=== PATIENT | male | born 1940 | race Caucasian/White ===

== ENCOUNTER 2016-11-21 10:58 | Emergency (ER) | payer MEDICARE, BC, OTHER ==
[2016-11-21 11:15] VITALS: BP 129/78
[2016-11-21] MEDS ORDERED: DIPHTH,PERTUSS(ACELL),TET VAC 0.5 ML VIAL IM ONE ×2 (11:15→11:30)
--- OUTSIDE RECORDS SUMMARY | 2016-11-21 12:02 | XMS REPORT | Summary of Care ---
:1940 Author Organization [facility] Address [address] [place] [address]- Care Team Providers Name Role Phone Le Byrd Primary Care Physician Encounter Date(s): 11/04/16 - 11/07/16 [facility] [address] [place] [id number] [facility] Discharge Diagnosis: Syncope Discharge Diagnosis: Bradycardia Discharge Diagnosis: Bacterial pneumonia Discharge Diagnosis: Hyponatremia Discharge Disposition: 01 Discharged to Home or Self Care Attending Physician: Jose A Weldon MD Admitting Physician: Jose A Weldon MD Vital Signs Most recent to oldest [Reference 1 2 3 Range]: Temperature Temporal Artery 36.0 DegC 37.3 DegC 36.9 DegC [36-38 DegC] (11/07/16 11:00 AM) (11/07/16 7:00 AM) (11/07/16 4:00 AM) Peripheral Pulse Rate [60-100 60 bpm 60 bpm bpm] (11/05/16 9:59 AM) (11/05/16 9:58 AM) Heart Rate Monitored [60-100 bpm] 80 bpm 74 bpm 66 bpm (11/07/16 11:00 AM) (11/07/16 7:00 AM) (11/07/16 4:34 AM) Respiratory Rate [12-20 br/min] 16 br/min 18 br/min 18 br/min (11/07/16 11:00 AM) (11/07/16 7:00 AM) (11/07/16 4:34 AM) SpO2 93 % 97 % 98 % (11/07/16 11:00 AM) (11/07/16 7:00 AM) (11/07/16 4:00 AM) SpO2 Location Right hand Right hand Left hand (11/07/16 11:00 AM) (11/07/16 7:00 AM) (11/07/16 4:00 AM) Blood Pressure [90-130/60-90 129/71mmHg 130/72mmHg 139/91gsQy6 mmHg] (11/07/16 11:00 AM) (11/07/16 7:00 AM) *HI* (11/07/16 4:00 AM) Mean Arterial Pressure Monitor 97 mmHg 91 mmHg 92 mmHg Measure (11/04/16 8:05 PM) (11/04/16 5:00 PM) (11/04/16 4:15 PM) Blood Pressure Location Left arm Left arm Left arm (11/07/16 11:00 AM) (11/07/16 7:00 AM) (11/07/16 4:00 AM) Blood Pressure Supine 131/71mmHg [90-130/60-90 mmHg] *HI* (11/05/16 11:00 AM) Systolic Blood Pressure Supine 115 mmHg 148 mmHg5 [90-130 mmHg] (11/07/16 9:28 AM) *HI* (11/06/16 8:40 AM) Diastolic Blood Pressure Supine 76 mmHg 90 mmHg [60-90 mmHg] (11/07/16 9:28 AM) (11/06/16 8:40 AM) Pulse Supine [60-100 bpm] 86 bpm 55 bpm7 (11/07/16 9:28 AM) *LOW* (11/06/16 8:40 AM) Blood Pressure Sitting 132/82mmHg [90-130/60-90 mmHg] *HI* (11/05/16 11:00 AM) Systolic Blood Pressure Sitting 131 mmHg2 158 mmHg3 [90-130 mmHg] *HI* *HI* (11/07/16 9:28 AM) (11/06/16 8:40 AM) Diastolic Blood Pressure Sitting 72 mmHg 76 mmHg [60-90 mmHg] (11/07/16 9:28 AM) (11/06/16 8:40 AM) Pulse Sitting [60-100 bpm] 73 bpm 58 bpm6 (11/07/16 9:28 AM) *LOW* (11/06/16 8:40 AM) Blood Pressure Standing 135/77mmHg [90-130/60-90 mmHg] *HI* (11/05/16 11:00 AM) Systolic Blood Pressure Standing 117 mmHg 133 mmHg4 [90-130 mmHg] (11/07/16 9:28 AM) *HI* (11/06/16 8:40 AM) Diastolic Blood Pressure Standing 60 mmHg 80 mmHg [60-90 mmHg] (11/07/16 9:28 AM) (11/06/16 8:40 AM) Pulse Standing [60-100 bpm] 80 bpm 61 bpm (11/07/16 9:28 AM) (11/06/16 8:40 AM) Peripheral Pulse Rate with 62 bpm 66 bpm Activity (11/05/16 9:59 AM) (11/05/16 9:58 AM) Systolic Blood Pressure with 150 mmHg 150 mmHg Activity (11/05/16 9:59 AM) (11/05/16 9:58 AM) Diastolic Blood Pressure with 72 mmHg 72 mmHg Activity (11/05/16 9:59 AM) (11/05/16 9:58 AM) Most recent to oldest [Reference 1 2 3 Range]: Height/Length Measured 169 cm (11/04/16 6:19 PM) Weight Estimated 110 kg (11/04/16 3:15 PM) Weight Dosing 108.30 kg8 107.90 kg9 110.00 kg (11/05/16 4:17 AM) (11/04/16 7:34 PM) (11/04/16 6:19 PM) Weight Measured 106 kg 108.3 kg 107.9 kg (11/07/16 4:12 AM) (11/05/16 4:17 AM) (11/04/16 6:19 PM) BSA Measured 2.17 m2 (11/04/16 6:19 PM) Body Mass Index Measured 37.11 kg/m2 37.92 kg/m2 37.78 kg/m2 (11/07/16 4:12 AM) (11/05/16 4:17 AM) (11/04/16 6:19 PM) 1Result Comment: Notified Shakira MATIAS2Result Comment: notified nurse [id number] Comment: Reported to FLORENCIO Escoto.4Result Comment: Reported to RN. Tigist5Result Comment: Reported to RN. Tigist6Result Comment: Reported to Tigist, RN.7Result Comment: Reported to FLORENCIO Escoto.8Result Comment: This result was because the dosing weight was either not entered or it is>30 days old. This result is based off: Weight Measured November 05, 2016 04:17:00 GROUNDS MANAGER by Genevieve Shankar CNA9Result Comment: This result was because the dosing weight was either not entered or it is>30 days old. This result is based off: Weight Measured November 04, 2016 18:19:00 GROUNDS MANAGER by Zehra Haywood RN Problem List Condition Effective Dates Status Health Status Informant Cyst of kidney, acquired(Confirmed) Active Adrenal insufficiency(Confirmed) Active Bleeding tendency(Confirmed) Active Blood clot(Confirmed)1 Active CAD - Coronary artery Active disease(Confirmed) Colonic polyp(Confirmed) Active DI - Diabetes insipidus(Confirmed) Active DM - Diabetes mellitus(Confirmed)2 Active Embolism(Confirmed)3 Active FH: Thyroid disease(Confirmed) Active Gouty arthritis(Confirmed) Active Hyperlipidemia(Confirmed) Active Hypothyroidism(Confirmed) Active Obesity(Confirmed) Active ATA - Obstructive sleep Active apnea(Confirmed) Osteopenia(Confirmed) Active Panhypopituitarism(Confirmed) Active 1Right leg and [id number] Allergies, Adverse Reactions, Alerts Substance Reaction Severity Status testosterone Active Medications Actonel 35 mg oral tablet 1 tab(s), Oral, q7day, take in AM, # 13 tab(s), 3 Refill(s), Pharmacy: [facility] Special Instructions: take in AM Start Date: 02/14/14 Stop Date: 11/04/16 Status: CompletedActonel 35 mg oral tablet 1 tab(s), Oral, q7day, take in AM, # 30 tab(s), 5 Refill(s), Pharmacy: [id number] Special Instructions: take in AM Start Date: 01/09/14 Stop Date: 02/14/14 Status: CompletedActonel 35 mg oral tablet 1 tab(s), Oral, q7day, take in AM, # 30 tab(s), 5 Refill(s) Special Instructions: take in AM Start Date: 01/09/14 Stop Date: 01/09/14 Status: Discontinuedamiodarone 200 mg oral tablet 1 tab(s), Oral, Daily, 0 Refill(s), Start Date: 12/18/15 10:45:00 CDT Start Date: 12/18/15 Status: OrderedAricept 10 mg oral tablet 1 tab(s), Oral, HS, # 30 tab(s), 0 Refill(s) Start Date: 01/22/14 Status: Orderedaspirin 81 mg oral tablet 1 tab(s), Oral, Daily, Start Date: 11/04/16 16:30:00 GROUNDS MANAGER Start Date: 11/04/16 Status: Orderedatorvastatin 40 mg oral tablet 1 tab(s), Oral, Daily, Start Date: 11/04/16 16:33:00 GROUNDS MANAGER Start Date: 11/04/16 Status: OrderedATORVASTATIN 40 MG TABLET 0 Refill(s), Supply Start Date: 12/18/15 Stop Date: 11/04/16 Status: Completedcalcium (as carbonate)-vitamin D 500 mg-400 intl units oral tablet, chewable 1 tab(s), Chewed, BID, # 60 tab(s), 0 Refill(s) Start Date: 01/22/14 Status: OrderedCalcium 500+D 1 tab(s), Chewed, BID, Start Date: 11/04/16 16:35:00 GROUNDS MANAGER Start Date: 11/04/16 Stop Date: 11/07/16 Status: Discontinuedcarvedilol 3.125 mg oral tablet 1 tab(s), Oral, BID, 0 Refill(s), Start Date: 12/18/15 10:45:00 CDT Start Date: 12/18/15 Stop Date: 11/07/16 Status: DiscontinuedCeftin 250 mg oral tablet 1 tab(s), Oral, BID, # 8 tab(s), 0 Refill(s), Start Date: 11/07/16 11:55:00 GROUNDS MANAGER Start Date: 11/07/16 Stop Date: 11/11/16 Status: OrderedCeleBREX 200 mg oral capsule 1 cap(s), Oral, Daily, 0 Refill(s) Start Date: 01/22/14 Stop Date: 02/14/14 Status: DiscontinuedCeleBREX 200 mg oral capsule 1 cap(s), Oral, Daily, # 90 cap(s), 3 Refill(s), Pharmacy: [facility] Start Date: 02/14/14 Stop Date: 11/07/16 Status: Discontinuedclindamycin 300 mg oral capsule 1 cap(s), Oral, BID, # 20 cap(s), 0 Refill(s), Pharmacy: [id number] Start Date: 02/14/14 Stop Date: 11/04/16 Status: Completedclopidogrel 75 mg oral tablet 0 Refill(s), Start Date: 12/18/15 10:45:00 CDT Start Date: 12/18/15 Stop Date: 11/04/16 Status: CompletedCoumadin 3 mg oral tablet 1 tab(s), Oral, Daily, # 30 tab(s), 0 Refill(s) Start Date: 01/22/14 Stop Date: 11/04/16 Status: CompletedDDAVP Nasal 10 mcg/inh nasal spray 1 SPRAY, Nasal, BID, 0 Refill(s), Start Date: 01/22/14 13:14:00 CDT Start Date: 01/22/14 Stop Date: 11/07/16 Status: DiscontinuedDDAVP Nasal 10 mcg/inh nasal spray 1 spray(s), Nasal, Daily, 0 Refill(s), Start Date: 11/07/16 11:51:00 GROUNDS MANAGER Start Date: 11/07/16 Status: Ordereddexamethasone 4 mg/mL injectable solution 4 mg, IV, q6hr, PRN ADRENAL CRISIS, 0 Refill(s), Start Date: 01/22/14 13:14:00 CDT Start Date: 01/22/14 Stop Date: 01/25/14 Status: OrderedFlorastor 250 mg oral capsule 1 cap(s), Oral, BID, # 20 cap(s), 0 Refill(s), Start Date: 11/07/16 11:54:00 GROUNDS MANAGER Start Date: 11/07/16 Stop Date: 11/17/16 Status: Orderedfurosemide 20 mg oral tablet 1 tab(s), Oral, Daily, 0 Refill(s), Start Date: 12/18/15 10:45:00 CDT Start Date: 12/18/15 Status: Orderedhydrocortisone 20 mg oral tablet 1 tab(s), Oral, qPM, 0 Refill(s), Start Date: 11/07/16 11:51:00 GROUNDS MANAGER Start Date: 11/07/16 Status: Orderedhydrocortisone 20 mg oral tablet 2 tab(s), Oral, qAM, 0 Refill(s), Start Date: 11/07/16 11:51:00 GROUNDS MANAGER Start Date: 11/07/16 Status: Orderedhydrocortisone 20 mg oral tablet 1 tab(s), Oral, qAM, Start Date: 11/04/16 16:27:00 GROUNDS MANAGER Start Date: 11/04/16 Stop Date: 11/07/16 Status: Discontinuedhydrocortisone 20 mg oral tablet 0.5 tab(s), Oral, qPM, Start Date: 11/04/16 16:27:00 GROUNDS MANAGER Start Date: 11/04/16 Stop Date: 11/07/16 Status: DiscontinuedICaps Plus oral tablet 1 tab(s), Oral, Daily, # 30 tab(s), 0 Refill(s) Start Date: 01/22/14 Status: Orderedipratropium 42 mcg/inh (0.06%) nasal spray 2 spray(s), Nasal, TID, PRN as needed for cold symptoms, Start Date: 11/04/16 16 :34:00 GROUNDS MANAGER Start Date: 11/04/16 Status: OrderedKlor-Con 10 oral tablet, extended release 1 tab(s), Oral, Daily, Start Date: 11/04/16 16:29:00 GROUNDS MANAGER Start Date: 11/04/16 Status: Orderedlosartan 25 mg oral tablet 1 tab(s), Oral, Daily, 0 Refill(s), Start Date: 12/18/15 10:45:00 CDT Start Date: 12/18/15 Status: OrderedNamenda 10 mg oral tablet 1 tab(s), Oral, BID, # 180 tab(s), 3 Refill(s), Pharmacy: [id number] Start Date: 02/14/14 Status: OrderedNamenda 10 mg oral tablet 1 tab(s), Oral, BID, # 60 tab(s), 0 Refill(s) Start Date: 01/22/14 Stop Date: 02/14/14 Status: Discontinuednitroglycerin 0.4 mg sublingual tablet 1 tab(s), SL, q5min, PRN for chest pain, If chest pain not relieved in 5 minutes after first dose, seek immediate medical attention, Start Date: 16:32:00 GROUNDS MANAGER Special Instructions: If chest pain not relieved in 5 minutes after first dose, seek immediate medical attention Start Date: 11/04/16 Status: Orderedpantoprazole 40 mg oral delayed release tablet 1 tab(s), Oral, Daily, 0 Refill(s), Start Date: 12/18/15 10:45:00 CDT Start Date: 12/18/15 Status: Orderedpotassium chloride 8 mEq oral capsule, extended release 1 cap(s), Oral, Daily, 0 Refill(s) Start Date: 01/22/14 Stop Date: 11/04/16 Status: CompletedSynthroid 125 mcg (0.125 mg) oral tablet 1 tab(s), Oral, Daily, # 30 tab(s), 0 Refill(s) Start Date: 01/22/14 Status: OrderedTessalon Perles 100 mg oral capsule 1 cap(s), Oral, TID, PRN cough, # 21 cap(s), 0 Refill(s), Start Date: 11/07/16 11:54:00 GROUNDS MANAGER Start Date: 11/07/16 Stop Date: 11/14/16 Status: OrderedtraMADol 50 mg oral tablet 1 tab(s), Oral, q12hr, PRN as needed for pain, # 14 tab(s), 0 Refill(s), Start Date: 11/07/16 12:10:00 GROUNDS MANAGER Start Date: 11/07/16 Stop Date: 11/14/16 Status: OrderedTriCor 145 mg oral tablet 1 tab(s), Oral, Daily, # 30 tab(s), 0 Refill(s) Start Date: 01/22/14 Stop Date: 02/14/14 Status: DiscontinuedTriCor 145 mg oral tablet 1 tab(s), Oral, Daily, # 90 tab(s), 3 Refill(s), Pharmacy: [facility] Start Date: 02/14/14 Stop Date: 11/04/16 Status: CompletedVitamin D3 1000 intl units oral tablet 2 tab(s), Oral, Daily, # 30 tab(s), 0 Refill(s) Start Date: 01/22/14 Stop Date: 11/04/16 Status: CompletedVitamin D3 2000 intl units oral tablet 1 tab(s), Oral, Daily, Start Date: 11/04/16 16:35:00 GROUNDS MANAGER Start Date: 11/04/16 Status: Orderedwarfarin 4 mg oral tablet 1 tab(s), Oral, Daily, # 30 tab(s), 0 Refill(s) Start Date: 03/01/14 Stop Date: 03/01/14 Status: DiscontinuedZocor 40 mg oral tablet 1 tab(s), Oral, HS, # 30 tab(s), 0 Refill(s) Start Date: 01/22/14 Stop Date: 02/14/14 Status: DiscontinuedZocor 40 mg oral tablet 1 tab(s), Oral, HS, # 90 tab(s), 3 Refill(s), Pharmacy: [facility] Start Date: 02/14/14 Stop Date: 11/04/16 Status: CompletedZyrTEC 10 mg oral tablet 1 tab(s), Oral, Daily, # 30 tab(s), 0 Refill(s) Start Date: 01/22/14 Status: Ordered Results Patient Viewable Results Most recent to oldest [Reference 1 2 3 Range]: FIO2 21 % 21 % 21 % (11/05/16 11:41 PM) (11/05/16 5:45 AM) (11/05/16 2:04 AM) WBC [4.8-10.8 thou/mm3] 10.8 thou/mm3 (11/05/16 6:18 AM) RBC [4.60-6.00 Mil/mm3] 4.16 Mil/mm3 *LOW* (11/05/16 6:18 AM) Hgb [14.0-18.0 g/dL] 13.1 g/dL *LOW* (11/05/16 6:18 AM) Hct [42.0-52.0 %] 36.9 % *LOW* (11/05/16 6:18 AM) MCV [80.0-94.0 fL] 88.7 fL (11/05/16 6:18 AM) MCH [25.0-38.0 pg/cell] 31.5 pg/cell (11/05/16 6:18 AM) MCHC [31.0-37.0 g/dL] 35.5 g/dL (11/05/16 6:18 AM) RDW [1.0-48.0 fL] 42.4 fL (11/05/16 6:18 AM) Platelet [130-400 thou/mm3] 181 thou/mm3 (11/05/16 6:18 AM) Neutrophils % Auto [50.0-75.0 %] 86.5 % *HI* (11/05/16 6:18 AM) Immature Granulocyte Auto 0.8 % [0.1-2.0 %] (11/05/16 6:18 AM) Lymphocytes % Auto [15.0-41.0 %] 8.3 % *LOW* (11/05/16 6:18 AM) Monocytes % Auto [2.0-10.0 %] 4.3 % (11/05/16 6:18 AM) Eosinophils % Auto [0.0-6.0 %] 0.1 % (11/05/16 6:18 AM) Basophil % Auto [0.0-1.0 %] 0.0 % (11/05/16 6:18 AM) Neutrophils Absolute [1.5-5.9 9.3 thou/mm3 thou/mm3] *HI* (11/05/16 6:18 AM) Immature Gran Absolute [0.01-0.03 0.09 thou/mm3 thou/mm3] *HI* (11/05/16 6:18 AM) Lymphocytes Absolute [1.5-4.0 0.9 thou/mm3 thou/mm3] *LOW* (11/05/16 6:18 AM) Monocytes Absolute [0.0-0.9 0.5 thou/mm3 thou/mm3] (11/05/16 6:18 AM) Eosinophil Absolute [0.0-0.7 0.0 thou/mm3 thou/mm3] (11/05/16 6:18 AM) Basophil Absolute [0.0-0.2 0.0 thou/mm3 thou/mm3] (11/05/16 6:18 AM) Sodium Lvl [135-144 mEq/L] 137 mEq/L 137 mEq/L 125 mEq/L (11/07/16 10:46 AM) (11/06/16 9:08 AM) *LOW* (11/05/16 5:02 PM) Potassium Lvl [3.3-4.8 mEq/L] 3.8 mEq/L 4.6 mEq/L 4.2 mEq/L (11/07/16 10:46 AM) (11/05/16 6:18 AM) (11/04/16 3:41 PM) Chloride Lvl [98-107 mEq/L] 96 mEq/L 86 mEq/L 89 mEq/L *LOW* *LOW* *LOW* (11/07/16 10:46 AM) (11/05/16 6:18 AM) (11/04/16 3:41 PM) Bicarbonate Lvl [22-30 mmol/L] 27 mmol/L 25 mmol/L 27 mmol/L (11/07/16 10:46 AM) (11/05/16 6:18 AM) (11/04/16 3:41 PM) Anion Gap [10.0-20.0] 17.8 18.6 15.2 (11/07/16 10:46 AM) (11/05/16 6:18 AM) (11/04/16 3:41 PM) Glucose Lvl [70-108 mg/dL] 143 mg/dL 106 mg/dL 114 mg/dL *HI* (11/05/16 6:18 AM) *HI* (11/07/16 10:46 AM) (11/04/16 3:41 PM) BUN [7-21 mg/dL] 28 mg/dL 19 mg/dL 23 mg/dL *HI* (11/05/16 6:18 AM) *HI* (11/07/16 10:46 AM) (11/04/16 3:41 PM) Creatinine Lvl [0.50-1.20 mg/dL] 1.31 mg/dL 0.85 mg/dL 1.07 mg/dL *HI* (11/05/16 6:18 AM) (11/04/16 3:41 PM) (11/07/16 10:46 AM) BUN/Creat Ratio 21.4 22.4 21.5 *NA* *NA* *NA* (11/07/16 10:46 AM) (11/05/16 6:18 AM) (11/04/16 3:41 PM) eGFR AA [>=60] >60 >60 >60 (11/07/16 10:46 AM) (11/05/16 6:18 AM) (11/04/16 3:41 PM) eGFR ANA MARIA [>=60] 53 >60 >60 *LOW* (11/05/16 6:18 AM) (11/04/16 3:41 PM) (11/07/16 10:46 AM) Calcium Lvl [8.6-10.2 mg/dL] 9.3 mg/dL 8.3 mg/dL 8.6 mg/dL (11/07/16 10:46 AM) *LOW* (11/04/16 3:41 PM) (11/05/16 6:18 AM) Myoglobin [0-74 ng/mL] 94 ng/mL1 *HI* (11/04/16 3:41 PM) Troponin-I [0.00-0.04 ng/mL] <0.01 ng/mL (11/04/16 3:41 PM) Free T4 [0.89-1.76 ng/dL] 1.51 ng/dL (11/05/16 6:18 AM) Osmolality, [place] Ur [50-1400 524 mOsm/kg H2O mOsm/kg H2O] (11/04/16 5:23 PM) Sodium, [place] Ur 106 mEq/L *NA* (11/04/16 5:23 PM) Estimated Creatinine Clearance 55.87 mL/min 86.11 mL/min 68.40 mL/min (11/07/16 11:12 AM) (11/05/16 7:32 AM) (11/05/16 4:17 AM) InfluA EIA Naso [Negative] Negative5 (11/04/16 4:13 PM) InfluB EIA Naso [Negative] Negative6 (11/04/16 4:13 PM) MRSA Screen by PCR [Negative] Negative (11/04/16 5:30 PM) C. diff toxin [Negative] Negative (11/05/16 10:53 PM) Whole Blood Glucose [70-108 151 mg/dL2 120 mg/dL3 90 mg/dL4 mg/dL] *HI* *HI* (11/07/16 8:36 AM) (11/07/16 11:02 AM) (11/07/16 9:03 AM) 1Result Comment: Positive myoglobin is not diagnostic of myocardial injury but may also be seen in skeletal muscle trauma, renal failure, and noncardiac disorders. Clinical correlation is needed. (Non-Cardiac Reference Range=0 - 110 ng/mL)2Result Comment: Notified Nurse~ Slide Forming Machine Operator: [id number] Luisito Bennett [id number] Comment: Notified Nurse~Slide Forming Machine Operator: [id number] Luisito Bennett [id number] Comment: Notified Nurse~[id number]~ Slide Forming Machine Operator: [id number] Bennett [id number] Comment: Presumptive Negative for Influenza "A" protein antigen. Infection due to Influenza "A" cannot be ruled out. Influenza "A" antigen in the sample may be below the detection limit of thetest.6Result Comment: Presumptive Negative for Influenza "B" protein antigen. Infection due to Influenza "B" cannot be ruled out. Influenza "B" antigen in the sample may be below the detection limit of thetest.Microbiology Reports TEST:Enteric Pathogens Panel STATUS:Auth (Verified) BODY SITE: SOURCE:Stool COLLECTED DATE/TIME:11/05/16 10:53 PMFINAL REPORTNEGATIVE for Campylobacter ssp., Salmonella ssp., Shigella ssp., Vibrio ssp., Yersinia enterocolitica, Shiga Toxin 1& 2, Norovirus, and Rotavirus.TEST:Sputum Culture with Gram Stain STATUS:Order in Progress BODY SITE: SOURCE:Sputum COLLECTED DATE/TIME:11/04/16 5:38 PMPRELIMINARY REPORT1+ growth Aspergillus fumigatus No Further Report Few colonies Gram Negative Bacilli Id And Sensitivity To Follow Mixed Oropharyngeal YanelisSTAIN REPORTFew White Blood Cells <=10 Squamous epitheliel cells/LPF, acceptable specimen Many Gram Positive Cocci Rare Gram Negative BacilliTEST:Blood Culture STATUS:Order in Progress BODY SITE: SOURCE:Blood COLLECTED DATE/TIME:11/04/16 4:45 PMPRELIMINARY REPORTNo growth at 3 days.TEST:Blood Culture STATUS:Order in Progress BODY SITE: SOURCE:Blood COLLECTED DATE/TIME:11/04/16 4:32 PMPRELIMINARY REPORTNo growth at 3 days. Immunizations Vaccine Date Refusal Reason influenza virus vaccine, inactivated 07/04/16 influenza virus vaccine, inactivated 06/29/13 pneumococcal 23-polyvalent vaccine 11/07/16 pneumococcal 7-valent vaccine 10/04/06 Procedures Procedure Date Related Diagnosis Body Site Appendectomy Cataract extraction Cholecystectomy Coronary artery stent1 Excision of pilonidal abscess Excision of pituitary gland Hernia repair Nasal polypectomy Replacement of total knee joint2 [id number] Social History No data available for this section Assessment and Plan No data available for this section
--- NOTE | 2016-11-21 12:14 | ERNOTE ---
Medical Problem HPI - Narrative Date of Service: 11/21/16 - General Chief Complaint: Laceration Time Seen by Provider: 11/21/16 11:30 Source: patient Exam Limitations: no limitations - Immun/Allergies/Home Medications Immunizations: IMMUNIZATION HX Immunizations Up to Date Yes History of Influenza Vaccine No Hx Pneumococcal Vaccination No Allergies/Adverse Reactions: Allergies No Known Allergies Allergy (Verified 11/21/16 11:15) Home Medications: HOME MEDICATIONS B2/Vit A,C & E/Lut/Zeaxanth/Mn [Icaps Tablet] 2 each PO BID 10/13/14 [Last Taken Unknown] Desmopressin Acetate [Ddavp] 1 spray NS BID 10/13/14 [Last Taken 10/13/14 09:00 10 mcg] Donepezil HCl [Aricept] 10 mg PO HS 10/13/14 [Last Taken 10/13/14 09:00 10 mg] Hydrocortisone 10 mg PO HS 10/13/14 [Last Taken 10/12/14 10 mg] Hydrocortisone 20 mg PO QAM 10/13/14 [Last Taken 10/13/14 09:00 20 mg] Memantine HCl [Namenda] 10 mg PO BID 10/13/14 [Last Taken 10/12/14 10 mg] Cholecalciferol (Vitamin D3) [Vitamin D3] 2,000 unit PO DAILY 10/29/14 [Last Taken Unknown] Nitroglycerin 0.4 mg SL Q5MIN PRN 10/29/14 [Last Taken Unknown] Cetirizine HCl [Zyrtec] 10 mg PO DAILY #30 10/30/14 [Last Taken Unknown] Clopidogrel Bisulfate [Plavix] 75 mg PO DAILY #30 10/30/14 [Last Taken Unknown] Levothyroxine Sodium [Synthroid] 125 mcg PO DAILY #30 10/30/14 [Last Taken 07/18 09:00 125 mcg] Atorvastatin Calcium [Lipitor] 40 mg PO HS 11/10/14 [Last Taken Unknown] Carvedilol [Coreg] 3.125 mg PO BID #60 tablet 11/13/14 [Last Taken Unknown] Furosemide [Lasix] 20 mg PO DAILY@1200 #30 tablet 11/13/14 [Last Taken Unknown] traMADol HCL [Ultram] 50 mg PO Q4H PRN 06/30/15 [Last Taken Unknown] Acetaminophen [Tylenol] 650 mg PO Q4H PRN 08/22/15 [Last Taken Unknown] Amiodarone HCl [Cordarone] 200 mg PO DAILY 08/22/15 [Last Taken Unknown] Aspirin [Aspirin EC] 81 mg PO DAILY 08/22/15 [Last Taken Unknown] Calcium Carbonate/Vitamin D3 [Calcium 500 + Vit D 200 Tablet] 1 each PO BID [Last Taken Unknown] Celecoxib [Celebrex] 100 mg PO DAILY 08/22/15 [Last Taken Unknown] Dexamethasone Sod Phosphate [Decadron] 4 mg IJ DAILY PRN 08/22/15 [Last Taken Unknown] Ipratropium [place] [Atrovent 0.03% Nasal [place]] 2 spray NS TID 08/22/15 [Last Taken Unknown] Losartan Potassium [Cozaar] 12.5 mg PO DAILY 08/22/15 [Last Taken Unknown] Potassium Chloride [Klor-Con M20] 20 meq PO DAILY 08/22/15 [Last Taken Unknown] - History of Present History Narrative: Was splitting wood this morning. About 1015, cut his left index finger accidentally. Bled a lot. Previous distal tip amputation. Minimal pain. Doesn't remember last tetatnus shot. Timing: constant Severity: mild, moderate Modifying Factors - (Improves): Present: rest Modifying Factors - (Worsens): Present: movement Review of Systems - Review of Systems Constitutional: Present: no symptoms reported EYE: Present: no symptoms reported ENT: Present: no symptoms reported Respiratory: Present: no symptoms reported Cardiology: Present: no symptoms reported Gastrointestinal/Abdominal: Present: no symptoms reported Genitourinary: Present: no symptoms reported Musculoskeletal: Present: no symptoms reported Skin: Present: See HPI Neurological: Present: no symptoms reported Endocrine: Present: no symptoms reported Hematologic/Lymphatic: Present: no symptoms reported Psych: Present: no symptoms reported - Patient's Past Medical History Patient History - Medical: Alzheimer's Disease, Arthritis, Diabetes Type 1, Dementia, Hypothyroidism, Obesity, Osteoarthritis, Osteoporosis Patient History - Cardiac/Respiratory: Coronary Heart Disease, Hyperlipidemia, Pulmonary Embolism, Other Patient History - Cancer: No Hx of Cancer Patient History - Surgical Procedures: Appendectomy, Cataracts, Cholecystectomy , Colonoscopy, Total Knee Replacement, Other Patient History - Other: None - Family History Mother Family History - Medical: Family History - Cardiac/Respiratory: CHF Father Family History - Medical: Family History - Cardiac/Respiratory: CHF - Social History Living Situations: other Abuse History: No History of abuse Psych History: No pertinent hx Smoking Status: Former smoker Have you smoked in the past 12 months: No Do you dip or chew tobacco: No Alcohol Use: none Drug Use: none - Immunizations Immunizations Up to Date: Yes Hx Pneumococcal Vaccination: No History of Influenza Vaccine: No Physical Exam - Physical Exam General Appearance: Present: wd/wn, alert, no apparent distress Eye Exam: Normal inspection: bilateral, PERRL: bilateral, EOMI: bilateral Ears, Nose, Throat: Present: normal ENT inspection, hearing grossly normal Neck: Present: normal inspection Respiratory: Present: no respiratory distress Cardiovascular/Chest: Present: regular rate, rhythm Back Exam: Present: normal inspection Extremity Exam: Present: other - 2 cm triangular laceration volar aspect distal left index finger. Not bleeding much now. Clean wound. ED Progress - Vital Signs Patient's Vital Signs:: I have reviewed the patient's vital signs. Vital Signs: Vital Signs 11/21/16 11:12 Temperature 35.5 C L Pulse Rate 88 Respiratory 14 Rate Blood Pressure 129/78 O2 Sat by Pulse 94 Oximetry - X-Ray X-Ray #1 X-Ray: left index finger Interpretation: Interp. 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 Followup with your doctor in 3 days. Referrals: Le Byrd MD [Primary Care Provider] -
== END 2016-11-21 13:09 | disposition home or self-care (01) ==
LOC: ER 10:58
DX: S61.211A Laceration without foreign body of left index finger without damage to nail, initial encounter (principal); X58.XXXA Exposure to other specified factors, initial encounter; Y93.89 Activity, other specified; Z23 Encounter for immunization

== ENCOUNTER 2017-07-21 07:33 | Emergency (ER) | payer MEDICARE, BC, OTHER ==
[2017-07-21 07:44] VITALS: BP 117/68
[2017-07-21 08:50] LABS: Hematocrit 41.1 % (42.0-52.0); Hemoglobin 13.5 gm/dL (13.5-18.0); Mean Cell Volume 97.9 fl (78-100); Mean Corpuscular Hemoglobin 32.1 pg (27-31); Mean Corpuscular Hgb Conc 32.8 g/dl (32-36); Mean Platelet Volume 10.2 fl (6.0-9.5); Neutrophil # 4.8 K/mm3 (1.3-6.0); Neutrophil % 64.5 % (42-75.0); Platelet Count 187 K/mm3 (150-450); Red Cell Distribution Width 13.2 % (11.5-14.0); White Blood Count 7.4 K/mm3 (4.0-10.5)
[2017-07-21 09:01] LABS: Albumin * 3.6 gm/dl (3.4-5.0); Anion Gap 12.3 mmol/L (6.8-13.8); BUN/Creatinine Ratio 21.5 (9.0-21.6); Bilirubin, Total 0.5 mg/dL (0.0-1.1); Ca. Corrected For Albumin 8.7 mg/dL (8.4-10.2); Calcium * 8.7 mg/dL (7.9-10.9); Carbon Dioxide 26.5 mmol/L (24-32.6); Potassium 3.8 mmol/L (3.4-4.6); Total Protein 7.4 gm/dL (6.2-8.2)
[2017-07-21 09:04] LABS: Urine Appearance Clear; Urine Bacteria None Seen; Urine Bilirubin Negative (NEGATIVE); Urine Blood 5 /ul (NEGATIVE); Urine Color Yellow; Urine Ketone Negative (NEGATIVE); Urine Nitrite Negative (NEGATIVE); Urine Protein Negative (NEGATIVE); Urine RBC 0-5 /hpf (0-5); Urine Urobilinogen Normal (NORMAL); Urine WBC None Seen /hpf (0-5); Urine pH 5.5 pH (5.0-7.0)
--- NOTE | 2017-07-21 09:11 | ERNOTE ---
Lower Extremity HPI - Narrative Date of Service: 07/21/17 - General Time Seen by Provider: 07/21/17 08:33 Source: patient Exam Limitations: no limitations - Immun/Allergies/Home Medications Immunizations: IMMUNIZATION HX Immunizations Up to Date Yes History of Influenza Vaccine Yes Hx Pneumococcal Vaccination No Allergies/Adverse Reactions: Allergies Allergy/AdvReac Type Severity Reaction Status Date / Time No Known Allergies Allergy Verified 07/21/17 07:45 Home Medications: HOME MEDICATIONS B2/Vits A,C,E/Lut/Zeaxanth/Min [Icaps Tablet] 2 each PO BID 10/13/14 [Last Taken Unknown] Desmopressin Acetate [Ddavp] 1 spray NS BID 10/13/14 [Last Taken 10/13/14 09:00 10 mcg] Donepezil HCl [Aricept] 10 mg PO HS 10/13/14 [Last Taken 10/13/14 09:00 10 mg] Hydrocortisone 10 mg PO HS 10/13/14 [Last Taken 10/12/14 10 mg] Hydrocortisone 20 mg PO QAM 10/13/14 [Last Taken 10/13/14 09:00 20 mg] Memantine HCl [Namenda] 10 mg PO BID 10/13/14 [Last Taken 10/12/14 10 mg] Cholecalciferol (Vitamin D3) [Vitamin D3] 2,000 unit PO DAILY 10/29/14 [Last Taken Unknown] Nitroglycerin 0.4 mg SL Q5MIN PRN 10/29/14 [Last Taken Unknown] Cetirizine HCl [Zyrtec] 10 mg PO DAILY #30 10/30/14 [Last Taken Unknown] Clopidogrel Bisulfate [Plavix] 75 mg PO DAILY #30 10/30/14 [Last Taken Unknown] Levothyroxine Sodium [Synthroid] 125 mcg PO DAILY #30 10/30/14 [Last Taken 10/13 09:00 125 mcg] Atorvastatin Calcium [Lipitor] 40 mg PO HS 11/10/14 [Last Taken Unknown] Carvedilol [Coreg] 3.125 mg PO BID #60 tablet 11/13/14 [Last Taken Unknown] Furosemide [Lasix] 20 mg PO DAILY@1200 #30 tablet 11/13/14 [Last Taken Unknown] traMADol HCL [Ultram] 50 mg PO Q4H PRN 06/30/15 [Last Taken Unknown] Acetaminophen [Tylenol] 650 mg PO Q4H PRN 08/22/15 [Last Taken Unknown] Amiodarone HCl [Cordarone] 200 mg PO DAILY 08/22/15 [Last Taken Unknown] Aspirin [Aspirin EC] 81 mg PO DAILY 08/22/15 [Last Taken Unknown] Calcium Carbonate/Vitamin D3 [Calcium 500 + Vit D 200 Tablet] 1 each PO BID [Last Taken Unknown] Celecoxib [Celebrex] 100 mg PO DAILY 08/22/15 [Last Taken Unknown] Dexamethasone Sod Phosphate [Decadron] 4 mg IJ DAILY PRN 08/22/15 [Last Taken Unknown] Ipratropium [place] [Atrovent 0.03% Nasal [place]] 2 spray NS TID 08/22/15 [Last Taken Unknown] Losartan Potassium [Cozaar] 12.5 mg PO DAILY 08/22/15 [Last Taken Unknown] Potassium Chloride [Klor-Con M20] 20 meq PO DAILY 08/22/15 [Last Taken Unknown] - History of Present Illness Narrative: 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 Skin: Present: no symptoms reported - Patient's Past Medical History Patient History - Medical: Alzheimer's Disease, Arthritis, Diabetes Type 1, Dementia, Hypothyroidism, Obesity, Osteoarthritis, Osteoporosis Patient History - Cardiac/Respiratory: Coronary Heart Disease, CHF, Deep Vein Thrombosis, Hyperlipidemia, Pulmonary Embolism, Other Patient History - Cancer: No Hx of Cancer Patient History - Surgical Procedures: Appendectomy, Cataracts, Cholecystectomy , Colonoscopy, Cardiac stent, Total Knee Replacement, Other Patient History - Other: None - Family History Mother Family History - Medical: Family History - Cardiac/Respiratory: CHF Father Family History - Medical: Family History - Cardiac/Respiratory: CHF - Social History Abuse History: No History of abuse Psych History: No pertinent hx Smoking Status: Never smoker - Immunizations Immunizations Up to Date: Yes Hx Pneumococcal Vaccination: No History of Influenza Vaccine: Yes Physical Exam - Physical Exam General Appearance: Present: wd/wn, alert, no apparent distress Head Exam: Present: normal inspection, no evidence of injury Ears, Nose, Throat: Present: normal ENT inspection Neck: Present: normal inspection, nontender Respiratory: Present: no respiratory distress, normal breath sounds, no accessory muscle use, chest nontender, lungs clear Cardiovascular/Chest: Present: regular rate, rhythm, no murmur, normal peripheral pulses Gastrointestinal/Abdominal: Present: normal bowel sounds Extremity Exam: Present: normal inspection - there is no pitting edema or otherwise swelling in the extremities anywhere, no edema ED Progress - Results and Orders Patient's Lab Results:: I have reviewed the patient's lab results. - Vital Signs Patient's Vital Signs:: I have reviewed the patient's vital signs. Vital Signs: Vital Signs 07/21/17 07:38 Temperature 36.5 C Pulse Rate 66 Respiratory 16 Rate Blood Pressure 117/68 O2 Sat by Pulse 97 Oximetry - Progress/Reassessment Chief Complaint: Lower Extremity Pain/ Injury Plan - Plan Plan: Patient's BUN/creatinine and creatinine are normal electrolytes are normal Departure Clinical Impression: Feared condition not demonstrated - Departure Disposition: Home self-care Condition: Good Referrals: Le Byrd MD [Primary Care Provider] -
== END 2017-07-21 09:08 | disposition home or self-care (01) ==
LOC: ER 07:33
DX: Z03.89 Encounter for observation for other suspected diseases and conditions ruled out (principal); Z86.718 Personal history of other venous thrombosis and embolism; Z86.711 Personal history of pulmonary embolism